=== PATIENT | male | born 1970 | race Caucasian/White ===

== ENCOUNTER → 2020-03-26 15:27 | Outpatient (CLI) | payer BC, SELFPAY | PROVIDERS: PCP Family Medicine; Visit Provider Family Medicine | DX: Z11.52 Encounter for screening for COVID-19 (principal) | CPT/HCPCS: U0003 ==

== ENCOUNTER → 2020-06-27 15:30 | Outpatient (CLI) | payer BC, SELFPAY | PROVIDERS: PCP Family Medicine; Visit Provider Family Medicine | DX: G47.33 Obstructive sleep apnea (adult) (pediatric) (principal) | CPT/HCPCS: G0399 ==

== ENCOUNTER 2020-09-07 15:31 | Emergency (ER) | payer BC, SELFPAY ==
[2020-09-07 15:43] VITALS: BP 145/85; PULSE 96; RESP 16; TEMP 36.6; O2SAT 100; BMI 34.9
[2020-09-07 15:52] VITALS: BP 000/00; PULSE 95; RESP 18; TEMP 36.6
--- NOTE | 2020-09-07 15:59 | HMH.EDUTC ---
[facility] [facility] [place] Clinical Impression: Preop testing, Exposure to COVID-19 virus Disposition: Home, Self-Care Condition on Discharge: Good Instructions: Preventing the Spread of Coronavirus Discharge Instructions Additional Instructions: Drink plenty of fluids. Take tylenol for pain or fever. Follow up with your regular doctor. GO TO THE ER FOR ANY WORSENING SYMPTOMS Referrals: Joseph Caal [Primary Care Provider] - Time of Disposition: 16:00 Medical Decision Making - Medical Records Medical records reviewed: No: I reviewed the patient's medical records. - Armin Inquiry Pt receiving controlled substance: No Vital Signs: 09/07/20 15:43 09/07/20 15:52 Temperature 97.9 F 98 F Temperature Source Tympanic Pulse Rate 95 H Pulse Rate [Right] 96 H Respiratory Rate 16 18 Blood Pressure 000/00 L Blood Pressure [Right Arm] 145/85 H Blood Pressure Mean [Right Arm] 105 Blood Pressure Source [Right Arm] Automatic Cuff Blood Pressure Position [Right Arm] Sitting 02 Sat by Pulse Oximetry 100 [facility] [place] [facility] [place] - General Stated complaint: covid test Time Seen by Provider: 09/07/20 16:00 Mode of Arrival: Ambulatory Source of Information: Patient Limitations: No Limitations Description of Symptoms (Recalled from Triage Doc. by RN): presurgical covid swab HEENT Symptoms (Recalled from RN notes): No Resp Symptoms (Recalled from RN notes): No Skin Symptoms (Recalled from RN notes): No MS Symptoms (Recalled from RN notes): No Functional Status (Recalled from RN notes): na - History of Present Illness Provider Complaint: He is here needing a covid test because he has a colonoscopy scheduled for next Thursday. He denies any symptoms. - Related Data Home Medications Medication Instructions Recorded Confirmed aspirin 81 mg tablet,delayed 81 mg PO DAILY 07/11/20 07/11/20 release atorvastatin 80 mg tablet 80 mg PO HS tab 07/11/20 07/11/20 cholecalciferol (vitamin D3) 1,250 50,000 unit PO WEEKLY cap 07/11/20 07/11/20 mcg (50,000 unit) capsule diclofenac sodium 75 mg 75 mg PO DAILY 07/11/20 07/11/20 tablet,delayed release furosemide 20 mg tablet 20 mg PO DAILY tab 07/11/20 07/11/20 metoprolol tartrate 50 mg tablet 50 mg PO BID tab 07/11/20 07/11/20 omeprazole 40 mg capsule,delayed 40 mg PO DAILY cap 07/11/20 07/11/20 release sacubitril 97 mg-valsartan 103 mg 1 tab PO BID 07/11/20 07/11/20 tablet zolpidem 10 mg tablet 10 mg PO HS tab 07/11/20 07/11/20 Allergies Allergy/AdvReac Type Severity Reaction Status Date / Time No Known Allergies Allergy Verified 09/06/20 10:35 - Worker's Comp Is this a Worker's Comp case?: No [facility] History - Hepatitis A Screen Drug use history?: No High risk sexual behaviors?: No History of sexually transmitted infection?: No Currently employed?: No Childcare worker?: No Do you have indoor plumbing?: Yes Do you have electricity?: Yes Attestation statement:: This patient has been screened for Hepatitis A risk factors. I have reviewed the patient's past medical history: Yes Medical History: Reports:: Cancer, Cerebrovascular Accident, Gastroesophageal Reflux Disease(GERD), Hyperlipidemia, Hypertension, Internal Pacemaker Denies:: Diabetes Mellitus Type 1, Diabetes Mellitus Type 2, MRSA Other Surgeries: Yes: Pacemaker, Other Amputation: No Fractures: No Comment: cervical spine- titanium - Social History Smoking Status: Current every day smoker Tobacco Type: cigarettes # Packs/Day (cigarettes): 1 Alcohol Intake: never Alcohol Intake Frequency:: a few times a month Substance Use Type: denies use Occupational Status: employed Housing: house Household Members: spouse Family Hx:: Cancer, Heart Attack ROS Obtained: Yes All systems reviewed & no additional complaints - Constitutional Constitutional: Reports system reviewed and no additional complaints, except as docu - Eyes Eyes: Reports system reviewed and no additional complaints,
== END 2020-09-07 16:01 | disposition home or self-care (01) ==
PROVIDERS: Emergency Provider Nurse Practitioner Family; PCP Family Medicine
DX: Z11.52 Encounter for screening for COVID-19 (principal)
CPT/HCPCS: 99202; G0463; U0003

== ENCOUNTER 2020-09-10 10:55 | Day surgery (SDC) | payer BC, SELFPAY ==
[2020-09-05 10:49] VITALS: BMI 34.9
--- NOTE | 2020-09-10 11:37 | HMH.ANESCL ---
[facility] Anesthesia Checklist - Structural Data Admitted From: Home Planned Operative Procedure/s: colonoscopy Consent for Planned Operative Procedure(s) Verified: Yes - Airway Assessment C-Spine Mobility Assessed: Yes TMJ Mobility Assessed: Yes Dentition: Good Dentition - Neurological Assessment Level of Consciousness: Awake, Alert, Appropriate - Anesthesia Plan Anesthesia Risk discussed: Yes Anesthesia Plan: Verified ASA Class: III Anesthesia Type: MAC [facility] History I have reviewed the patient's past medical history: Yes Medical History: Reports:: Cancer, Cardiomyopathy, Congestive Heart Failure, Cerebrovascular Accident, Gastroesophageal Reflux Disease(GERD), Hyperlipidemia, Hypertension Denies:: Diabetes Mellitus Type 1, Diabetes Mellitus Type 2, Internal Pacemaker, MRSA, Seizures *Have you ever received a pneumonia vaccine?: No *Have you received a flu vaccine this season?: Yes Anesthesia experience/problems:: none Other Surgeries: Yes: Other. No: Pacemaker Amputation: No Fractures: No - *Social History Last grade of school completed: High school graduate Smoking Status: Current every day smoker Tobacco Type: cigarettes # Packs/Day (cigarettes): 1 Alcohol Intake: never Alcohol Intake Frequency:: a few times a month Substance Use Type: denies use *Occupational Status:: employed Housing: house Household Members: spouse *Travel in the last 8 weeks: None Family Hx:: Cancer, Heart Attack
--- NOTE | 2020-09-10 12:12 | HMH.PROC ---
[facility] Procedure Note Procedure Note:: Colonoscopy Procedure Report: Colonoscopy with cold snare polypectomy Endoscopist: Yogi Peguero II, MD Referring physician: Joseph Caal Date of Procedure: September 10, 2020 Equipment: Olympus 190 variable stiffness pediatric colonoscope Sedation: MAC sedation Indication: Mr. Brown is a 50-year-old gentleman who is here for initial screening colonoscopy. He reports no abdominal pain, weight loss, change in his bowel habits or rectal bleeding. He reports no family history of colon cancer. His hemoglobin was slightly lower than it was 1 year ago. He is on diclofenac. Procedure: Prior to the procedure, a history and physical exam was performed, and patient's medications and allergies were reviewed. The risks, benefits and alternatives of the sedation and procedure were discussed with the patient. All questions were answered and informed consent was obtained. The patient was brought to the procedure room. Patient identification and proposed procedure were verified by the physician and the nurse. The patient was placed in a left lateral decubitus position and the scope was passed under direct vision. Throughout the procedure, the patient's blood pressure, pulse, and oxygen saturations were monitored continuously. The colonoscopy was accomplished without difficulty. The patient tolerated the procedure well. Findings: On digital rectal examination there was normal rectal tone. There were no external hemorrhoids. The colonoscope was introduced through the anal canal to the rectum and advanced to the cecum. The ileocecal valve and appendiceal orifice were identified. The scope was advanced a short distance into the ileum which appeared grossly normal. The scope was then withdrawn into the colon. There were 2 colon polyps (descending x1 (18 mm) and sigmoid x1 (4 mm)) which were both removed via cold snare polypectomy. The larger descending polyp was removed in piecemeal and a single Endo Clip was placed at the polypectomy site to provide hemostasis. There were scattered diverticuli throughout the descending and sigmoid colon (LEFT colon). The rectum itself was normal. Upon retroflexion within the rectum there were grade 2 internal hemorrhoids. The preparation was excellent throughout with [place] Preparation Score of 9. The cecal time was 14 minutes. Impression: 1. Descending colon polyp (18 mm) 2. Diminutive sigmoid colon polyp (4 mm) 3. Left-sided diverticulosis 4. Grade 2 internal hemorrhoids Plan: I will follow up the polyp histology. I do suspect that the larger polyp is an advanced adenoma. Based upon size and histology, I would consider repeat surveillance colonoscopy again in 2 to 3 years based upon pathology findings. I would encourage bulk fiber supplementation on a long-term daily maintenance basis.
[2020-09-10 12:15] VITALS: BP 101/62; PULSE 115; RESP 18; TEMP 36.3; O2SAT 96
[2020-09-10 12:25] VITALS: BP 109/71; PULSE 96; RESP 18; O2SAT 91
[2020-09-10 12:35] VITALS: BP 118/85; PULSE 84; RESP 18; O2SAT 96
[2020-09-10 12:52] VITALS: BP 137/82; PULSE 85; RESP 18; O2SAT 99
[2020-09-10 12:53] VITALS: O2SAT 95
== END 2020-09-10 12:52 | disposition home or self-care (01) ==
LOC: OUTP 10:56
PROVIDERS: PCP Family Medicine; Visit Provider Internal Medicine Gastroenterology
PROC: 0DJD8ZZ Inspection of Lower Intestinal Tract, Via Natural or Artificial Opening Endoscopic (ICD-10-PCS; CPT 45378; principal; 2020-09-10 12:00)
DX: Z12.11 Encounter for screening for malignant neoplasm of colon (principal); K63.5 Polyp of colon; K57.30 Diverticulosis of large intestine without perforation or abscess without bleeding; K64.1 Second degree hemorrhoids; Z85.9 Personal history of malignant neoplasm, unspecified; I42.9 Cardiomyopathy, unspecified; Z86.73 Personal history of transient ischemic attack (TIA), and cerebral infarction without residual deficits; K21.9 Gastro-esophageal reflux disease without esophagitis; E78.5 Hyperlipidemia, unspecified; I11.0 Hypertensive heart disease with heart failure; I50.9 Heart failure, unspecified
CPT/HCPCS: 45385

== ENCOUNTER → 2021-04-08 07:42 | Outpatient (CLI) | payer BC, SELFPAY ==
--- NOTE | 2021-04-08 07:48 | CA_ITS ---
FINAL REPORT CLINICAL HISTORY: HTN,SMOKER FINDINGS: DOPPLER RENAL VESSELS The right kidney measures 13.9 cm in length. The left kidney measures 13.6 cm in length. No hydronephrosis is seen. Intrarenal resistive indices on the right are 0.67, normal . Intrarenal resistive indices on the left are is 0.68, normal . Right main renal artery systolic velocity: 212 cm/sec. Right RAR: 2.7 COMMENT: Mildly elevated velocity with probably less than 60% stenosis.. Left main renal artery systolic velocity: 193 cm/sec. Left RAR: 2.47 COMMENT: Mildly elevated velocity with probably less than 60% stenosis. CONCLUSION: Mildly elevated velocities bilaterally with probably less than 60% stenosis. Imaging with CTA may be of value for further evaluation. Reviewed, Interpreted and Dictated by Shaw Berger MD Transcribed by Barrington Santana Authenticated by Shaw Berger MD on 04/08/2021 09:58:09 AM [facility]
== END ==
PROVIDERS: PCP Family Medicine; Visit Provider Family Medicine
DX: I10 Essential (primary) hypertension (principal)
CPT/HCPCS: 93976

== ENCOUNTER 2024-02-04 09:03 | Day surgery (SDC) | payer BC, SELFPAY ==
[2024-02-02 12:37] VITALS: BMI 36.5
[2024-02-04 09:42] VITALS: BP 137/78; PULSE 91; RESP 18; TEMP 36.5; O2SAT 99
--- NOTE | 2024-02-04 09:49 | P.PNANES_ITS ---
[facility] Disclaimer: The information contained in this section may have been updated after the patient was seen, as this information can be updated by other users. Medical History GERD (gastroesophageal reflux disease) DM type 2 (diabetes mellitus, type 2) Hyperlipidemia Hypertension Surgical History H/O neck surgery History of back surgery Family History Mother Family history of hypertension Coronary artery disease Father Family history of cancer Social History Smoking Status: Current every day smoker tobacco type: cigarettes packs per day: 1 alcohol intake: never substance use type: denies use current occupational status: employed household members: spouse housing: house current occupation: maintenance caffeine: Yes [facility] Anesthesia Checklist Patient Identification Patient Identification: Arm Band and Verbal (Name & ) Structural Data Admitted From: Home Planned Operative Procedure/s: Colonoscopy Consent for Planned Operative Procedure(s) Verified: Yes Verified Documents: Surgical Consent NPO Status Verified Time NPO: 00:00 Additional verifications Anesthesia Reactions: No Airway Assessment Mallampati Score:: Class II C-Spine Mobility Assessed: Yes TMJ Mobility Assessed: Yes Dentition: Dentures-poor fitting (Removed) Neurological Assessment Level of Consciousness: Awake Hx Seizures: No Numbness or tingling in extremities: No Anesthesia Plan Anesthesia Risk discussed: Yes Anesthesia Plan: Verified ASA Class: III Anesthesia Type: MAC
--- NOTE | 2024-02-04 09:52 | EXP.HP ---
History of Present Illness *Admission Date: 02/04/24 *Reason for visit:: Personal history of adenomatous colon polyps *History of present illness: Mr. Brown is a 53-year-old gentleman who is here for follow-up surveillance colonoscopy secondary to advanced adenomatous polyp removed in August 2020. The examination is deemed medically necessary for colonoscopy. The patient has been seen, interviewed and examined prior to the procedure by both myself and the anesthesia provider. [facility] Disclaimer: The information contained in this section may have been updated after the patient was seen, as this information can be updated by other users. Medical History GERD (gastroesophageal reflux disease) DM type 2 (diabetes mellitus, type 2) Hyperlipidemia Hypertension Surgical History H/O neck surgery History of back surgery Family History Mother Family history of hypertension Coronary artery disease Father Family history of cancer Social History (Updated 02/04/24 @ 09:50 by Isaiah Bear CRNA) Smoking Status: Current every day smoker tobacco type: cigarettes packs per day: 1 alcohol intake: never substance use type: denies use current occupational status: employed Travel in the last 8 weeks: None household members: spouse housing: house current occupation: maintenance caffeine: Yes Other Medical History Have you received the Flu Vaccine for this season: Yes Have you received the Pneumonia Vaccine: No Review of Systems Review of Systems Review of systems (narrative): Negative *Cardiovascular Comments: Negative *Gastrointestinal Comments: Negative *Genitourinary Comments: Negative *Musculoskeletal Comments: Negative *Neurologic Comments: Negative Meds Home Medications and Allergies Home Medications ?Medication ?Instructions ?Recorded ?Confirmed ?Type aspirin 81 mg tablet,delayed 81 mg PO DAILY Supplement 07/11/20 02/04/24 History release ([place] [facility]in) atorvastatin 80 mg tablet 80 mg PO HS Cholesterol 07/11/20 02/02/24 History cholecalciferol (vitamin D3) 1,250 50,000 unit PO WEEKLY Supplement 07/11/20 02/02/24 History mcg (50,000 unit) capsule diclofenac sodium 75 mg 75 mg PO DAILY Pain 07/11/20 02/02/24 History tablet,delayed release furosemide 20 mg tablet 20 mg PO DAILY Fluid 07/11/20 02/02/24 History metoprolol tartrate 50 mg tablet 50 mg PO BID bp 07/11/20 02/04/24 History omeprazole 40 mg capsule,delayed 40 mg PO DAILY GERD 07/11/20 02/02/24 History release sacubitril 97 mg-valsartan 103 mg 1 tab PO BID bp 07/11/20 02/04/24 History tablet (Entresto) zolpidem 10 mg tablet 10 mg PO HS sleep 07/11/20 02/02/24 History sodium,potassium,mag sulfates 17.5 See Rx Instructions PO .COMPLEX 01/25/24 02/02/24 Rx gram-3.13 gram-1.6 gram oral soln #354 mL (Suprep Bowel Prep Kit) New Prescriptions to Start Prescriptions: Allergies Allergy/AdvReac Type Severity Reaction Status Date / Time No Known Allergies Allergy Verified 09/06/20 10:35 Exam Data for Last 24 hours Vital signs and Labs for Last 24 Hours: Temp Pulse Resp BP Pulse Ox O2 Del Method 97.7 F 91 H 18 137/78 99 Room Air 02/04/24 09:42 02/04/24 09:42 02/04/24 09:42 02/04/24 09:42 02/04/24 09:42 02/04/24 09:42 I & O for Last 24 hours: Intake & Output 02/01/24 02/02/24 02/03/24 02/04/24 23:59 23:59 23:59 23:59 Weight 240 lb *Routine HEENT Exam Head: Present normocephalic Eye: Present EOMI and PERRL ENT: Present mucous membranes moist *Routine Neck Exam Neck: Present supple *Routine Respiratory Exam Respiratory: Present CTA bilaterally *Routine Cardiovascular Exam Cardiovascular: Present RRR *Routine Abdominal Exam Abdominal: Present soft and normoactive bowel sounds; Absent tenderness *Routine Rectal Exam Rectal:: deferred *Routine Genitalia Exam Genitalia:: deferred *Routine Extremities Exam Extremities: Absent cyanosis, clubbing or edema *Routine Skin Exam Skin: Present warm; Absent rash *Routine Neurological Exam Neurological: Present alert and oriented X3 Assessment and Plan *Assessment and plan (1) Personal history of adenomatous and serrated colon polyps: Status: Acute Category: Medical Code(s): Z86.0101 - Personal history of adenomatous and serrated colon polyps Plan A/P: 1. Personal history of larger advanced adenomatous polyp removed in August 2020 is the preprocedural diagnosis. The patient will be anesthetized/sedated using MAC sedation. The patient has been seen and examined. Cardiac and lung assessment prior to the examination is stable. Proceed with planned colonoscopy
--- NOTE | 2024-02-04 09:54 | P.PCN_ITS ---
[facility] Procedure Note Date: 02/04/24 Time: 10:14 Procedure Note:: Colonoscopy Procedure Report: Colonoscopy with cold snare polypectomy Endoscopist: oYgi Peguero II, MD Referring physician: Joseph Caal MD Date of Procedure: February 04, 2024 Equipment: Olympus 190 variable stiffness pediatric colonoscope Sedation: MAC sedation Indication: Mr. Brown is a 53-year-old gentleman who is here for follow-up surveillance colonoscopy. The patient did have a colonoscopy in August 2020 and had an 18 mm larger tubular adenoma removed from the descending colon. He had a second small hyperplastic polyp removed at that time. The patient reports no abdominal pain, weight loss, change in his bowel habits or rectal bleeding. He reports no family history of colon cancer. Procedure: Prior to the procedure, a history and physical exam was performed, and patient's medications and allergies were reviewed. The risks, benefits and alternatives of the sedation and procedure were discussed with the patient. All questions were answered and informed consent was obtained. The patient was brought to the procedure room. Patient identification and proposed procedure were verified by the physician and the nurse. The patient was placed in a left lateral decubitus position and the scope was passed under direct vision. Throughout the procedure, the patient's blood pressure, pulse, and oxygen saturations were monitored continuously. The colonoscopy was accomplished without difficulty. The patient tolerated the procedure well. Findings: On digital rectal examination there was normal rectal tone. There were no external hemorrhoids. The colonoscope was introduced through the anal canal to the rectum and advanced to the cecum. The ileocecal valve and appendiceal orifice were identified. The scope was advanced a short distance into the ileum which appeared grossly normal. The scope was then withdrawn into the colon. There were 5 colon polyps (ascending x 1 (7 mm), transverse x 1 (6 mm), descending x 3 (6, 8 and 9 mm)). These were all removed via cold snare polypectomy. The remaining cecum, ascending and transverse colon and mucosa were grossly normal. There were scattered diverticuli throughout the descending and sigmoid colon (LEFT colon). The rectum itself was normal. Upon retroflexion within the rectum there were grade 2 internal hemorrhoids. The preparation was excellent throughout with [place] Preparation Score of 9. The cecal time was 14 minutes. Impression: 1. Colonic polyps x 5 (ranging in size from 6 to 9 mm) 2. Left-sided diverticulosis 3. Grade 2 internal hemorrhoids Plan: I will follow-up the polyp histology. These are slightly larger adenomas and would recommend repeat surveillance colonoscopy again in 3 years. I would encourage psyllium fiber supplementation on a maintenance basis.
[2024-02-04 09:55] VITALS: O2SAT 98
[2024-02-04 09:57] LABS: POC Glucose,Bedside 141 (70-110)
[2024-02-04 10:18] VITALS: BP 92/55; PULSE 81; RESP 18; TEMP 36.2; O2SAT 90
[2024-02-04 10:28] VITALS: BP 100/64; PULSE 78; RESP 18; O2SAT 91
[2024-02-04 10:38] VITALS: BP 112/82; PULSE 77; RESP 18; O2SAT 92
[2024-02-04 10:48] VITALS: BP 100/59; PULSE 79; RESP 18; O2SAT 93
== END 2024-02-04 10:48 | disposition home or self-care (01) ==
PROVIDERS: PCP Family Medicine; Visit Provider Internal Medicine Gastroenterology
PROC: (CPT 45385; principal; 2024-02-04 10:30)
DX: K63.5 Polyp of colon; K57.30 Diverticulosis of large intestine without perforation or abscess without bleeding; K64.1 Second degree hemorrhoids; Z86.0101 Personal history of adenomatous and serrated colon polyps
CPT/HCPCS: 45385; 82962